=== PATIENT | male | born 1970 | race Caucasian/White ===

== ENCOUNTER 2023-07-02 13:22 | Inpatient (IN) | payer BC, SELFPAY ==
[2023-07-02] VITALS (11 sets, daily range): BP systolic 106–134; BP diastolic 69–99; BMI 36.7
--- NOTE | 2023-07-02 11:41 | W.PN.CARDCBS ---
Today's Communication / Plan
-
LHC
Impression / Plan
-
This is the H&P summary.
Full H&P scanned into chart.
PCP: HOSSEIN Buck (Not seen since 2018)
CDY: None, new to [facility]/Maurice Marshall MD
HPI: This is a 53 y/o white male, PMH sig for HTN, HLD, GERD, tobacco abuse. FH CAD in his father and grandparents. He has not seen PCP in 6 years and takes no prescription medications.
Presented to [facility] ER with new onset intermittent chest pain throughout the day. HS troponin peaked at 94. Started on Heparin gtt and loaded with aspirin 324mg. Transferred for [facility].
Echo 07/02/23- nml LVSF, EF 55-60%, no distinct WMA, trace MR
IMPRESSION:
NSTEMI
HTN
HLD
GERD
Tobacco abuse
FH CAD
PLAN:
NSTEMI-
C today
aspirin 81 given this morning after loaded in ER
started on metoprolol xl 25/d and diovan 40mg/d
echo results noted
cardiac rehab
followup with Dr. Marshall at d/c
HTN- monitor trends
HLD- TCh 276, Trig 262, LDL 199, HDL 42
started on high intensity statin therapy with atorvastatin 80/d
Elevated fasting glucose- was 143 this morning, check HgbA1C
Tobacco abuse- cessation strongly encouraged, nicoderm patch
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
Subjective
Date of Service: July 02, 2023
Physical Exam
Physical Exam
VS: 134/99- 76- 16- 99%RA
AAOx3, MAEE 5/5
RRR S1 S2 no murmurs
CTA bilat, non labored
soft abd, + bs
bilat extremities w/palpable distal pulses, no edema
[2023-07-02] MEDS: NSS 309 ML IV (13:40)
[2023-07-02 14:38] LABS: ACT-LR - POC 207 Seconds (116-155)
--- NOTE | 2023-07-02 15:20 | ITS.CL.ANGIO ---
Scanning Manager - Angioplasty
Angioplasty
Procedure Report:
LEFT HEART CATHETERIZATION
Date of Procedure: July 02, 2023
Procedures performed:
1: Coronary angiography
2: Left ventriculography
3: Percutaneous coronary intervention of the distal right coronary artery with placement of a 2.25 x 18 mm Xience stent postdilated proximally at high pressure with a 2.5 mm diameter noncompliant balloon
Primary Care Physician: None
Primary Student Union Consultant: Dr. Ronn Pascal
INDICATION: The patient is a 53-year-old man with no prior medical care who presents with unstable angina and ruled in for a very small non-ST elevation ME he is a smoker. His hemoglobin A1c is 6.4 this admission. Echocardiography showed normal LV
systolic function with a visually estimated ejection fraction of 55 to 60% with no significant valvular disease.
ACCESS: The patient was prepped and draped in usual sterile fashion. A 6 Macedonian sheath was placed in the right radial artery using the Seldinger over the wire technique.
HEMODYNAMIC FINDINGS (mmHg):
LV(s/d,EDP): 135/17, 24
Ao(s/d,m): 135/88, 107
ANGIOGRAPHIC FINDINGS:
Single-plane Left Ventriculography in MATIAS Projection: Normal LV systolic function with no clear regional wall motion abnormalities. No significant mitral regurgitation.
Coronary Angiography:
Dominance: Right
Left Main: Short, normal. Medium caliber.
Left Anterior Descending: The left anterior descending artery is a medium caliber vessel that gives rise to a medium caliber high diagonal branch. The LAD appears normal proximally. There is diffuse multilevel disease with 30 to 50% stenosis
throughout the midportion over a long segment starting just after the takeoff of the diagonal branch and first major septal employee services manager. The distal LAD is widely patent with normal distal flow. The major diagonal branch has diffuse proximal 50%
disease involving the takeoff of a small lateral vessel and a larger medial vessel. The medial vessel appears to be a reasonable surgical target. All vessels have normal flow.
Left Circumflex: The left circumflex is a relatively large nondominant system that gives rise to 3 major obtuse marginal branches. The first obtuse marginal branch is widely patent and courses in a ramus distribution with no focal disease. The
second obtuse marginal branch has a mid 70% stenosis with normal distal flow. The third obtuse marginal branch is a small vessel with limited vascular territory that appears to be widely patent.
Right Coronary: The right coronary artery is a large-caliber dominant vessel that gives rise to a large caliber posterior descending artery and small posterior left ventricular branch system. The mid right has a focal smooth 50% stenosis followed
by mild aneurysmal dilation. There is a larger aneurysmal dilation of the distal right coronary artery involving the takeoff of a medium caliber posterior descending artery that is widely patent. The PLV branch has a preocclusive 95% stenosis in
the AV groove jeopardizing flow and a 3 relatively small PLV branches.
Percutaneous Coronary Intervention (PCI): In light of the above angiographic findings and the patient's clinical presentation, I elected to proceed with a PCI of the culprit distal RCA lesion. I consulted with Dr. Milton Correa from CT surgery given
the diffuse nature of the LAD and major diagonal disease. Our feeling was the culprit lesion in the PLV territory was jeopardizing an area that could not be bypassed. My plan was to at least treat this lesion as it appeared to be the culprit and
then reevaluate multivessel stenting versus surgical revascularization for his left coronary disease. The patient was pretreated with unfractionated heparin and aspirin. A loading dose of clopidogrel 600 mg was given on the table at the end of the
procedure. A 6 Macedonian JR4 guiding catheter was used to engage the right coronary artery a short BMW wire was advanced down the right coronary artery and went into the posterior descending artery. I left this as an anchor for the guide which was
not well supported. A second BMW wire was then advanced down the PLV and into the largest distal branch. Predilation was performed with a 2.0 mm diameter balloon. Next a 2.25 x 18 mm Xience drug-eluting stent was deployed at 14 angelica. The more
proximal portion of the stent was postdilated with a 2.5 mm diameter noncompliant balloon at 16 angelica. Care was taken to stay within the stented margins.
FINAL RESULT: 0% in-stent residual stenosis with RITA-3 flow in all distal vessels.
Fluoroscopy Time (min): 10
Radiation Dose (mGy): 1873
DAP (Gy.cm2): 151
Closure device: None. A TR band was applied for hemostasis at the right wrist.
Complications: None.
ASSESSMENT:
1: Successful PCI of the culprit right coronary artery with placement of drug-eluting stent as described above.
2: Residual obstructive disease in the OM 2 as well as in the LAD as described above.
3: Preserved LV systolic function with no significant mitral gravitation elevated left ventricular filling pressures
CONCLUSIONS and RECOMMENDATIONS:
1: Routine post ME and post drug-eluting stent medical therapy and monitoring.
2: Formal CT surgical evaluation and plan a heart team discussion regarding revascularization of his residual left disease. The OM1 lesion is focal and would be a very favorable lesion for stenting. It may be that we consider a hybrid procedure
with arterial revascularization of his LAD and diagonal versus long overlapping stenting of the LAD with medical therapy for his diagonal.
Dave Phillips M.D.
[2023-07-02 15:51] LABS: ACT-LR - POC > 397 Seconds (116-155)
[2023-07-02 15:51] LABS: ACT-LR - POC > 397 Seconds (116-155)
[2023-07-02 15:51] LABS: ACT-LR - POC > 397 Seconds (116-155)
--- NOTE | 2023-07-02 15:51 | CONSULT.CT ---
Consultation
-
Date/Time Consultation Requested: 07/02/23 1545
Date/Time Consultation Performed: 07/02/23 1551
Requesting Provider: Afshan WOLF for Alan MACKENZIE
Performing Provider: Gigi WOLF for Sunny MACKENZIE
Reason for Consultation: CAD/CABG
Patient History
Physicians
Family Physician: None
Outpatient Nurse Practitioner Home Assessments: None
Inpatient Nurse Practitioner Home Assessments: Zeferino Phillips
History of Present Illness
53-year-old male with past medical history of hypertension, hyperlipidemia, GERD, tobacco abuse initially presented to [facility]'s emergency room with new onset of intermittent chest pain that worsened throughout the day. Troponins peaked
at 94 and was started on a heparin drip along with loaded with 324mg of aspirin. Patient was transferred to [facility] today for a left heart cath. Left heart cath revealed multivessel disease and he received a stent to the RCA, however,
there was disease in the LAD and OM so CT surgery was consulted for surgical evaluation.
Past Medical History
Past Medical History: GERD, HTN, Hypercholesterolemia, GA and Other
Concussion
Past Surgical History
Past Surgical History: None and PCI/Stent
Dental History
None
Family History
Family Medical History: CAD
Social History
Alcohol: Occasional
Drug: None
Tobacco: Smoker (1PPD)
Personal: Partner
Living: With Family
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
Allergies
Allergy/AdvReac Type Severity Reaction Status Date / Time
No Known Allergies Allergy Verified 07/02/23 13:22
Home Medications
Medication Instructions Recorded Confirmed Type
ibuprofen 200 mg tablet 600 mg PO Q6H PRN as needed for 07/02/23 07/02/23 History
pain
omeprazole 20 mg tablet,delayed 20 mg PO DAILY 07/02/23 07/02/23 History
release
Review of Systems
-
History Source: Patient
General: Reports Fatigue
HEENT: Reports No Symptoms
Respiratory: Reports Cough
Cardiac: Reports Chest Pain and CAD
Abdomen/GI: Reports Reflux and Indigestion
: Reports No Symptoms
Musculoskeletal: Reports No Symptoms
Skin: Reports No Symptoms
Neurological: Reports No Symptoms
Vascular: Reports No Symptoms
Physical Exam
Vital Signs
Temp 98.0 F 07/02/23 13:31
Temp route: Oral 07/02/23 13:31
Pulse 79 07/02/23 13:31
Resp Rate 18 07/02/23 13:31
Blood pressure 134/99 07/02/23 13:31
Blood pressure extremity used: Left upper arm 07/02/23 13:31
Position: Sitting 07/02/23 13:31
SaO2 96 07/02/23 13:31
Oxygen Mode of Delivery Room air 07/02/23 13:31
Can the patient verbally communicate their pain? Yes 07/02/23 13:31
Actual Weight 103 kg 07/02/23 13:30
Body Mass Index (BMI) 36.7 07/02/23 13:30
Exam
General: Well Developed
HEENT: Normocephalic
Respiratory: Clear
Cardiac: S1/S2
GI: Soft, Non Tender and Other (obese)
Rectal: Deferred by Provider
Skin: Warm
Neuro: AO x 3
Lymph: No Lymphadenopathy
Psych: Calm
Assessment / Plan
-
53-year-old male with past medical history listed above presented to [facility] with chest pain ruled in for non-STEMI. He was transferred here today for a left heart cath. During the left heart cath he received a stent to the RCA but CT
surgery was consulted for LAD and OM bypass.
#CAD s/p QUE to RCA on 07/02
- Patient's case will be discussed with attending physician. Further details regarding surgical timing intervention will be determined after attending physicians full evaluation.
- Routine preoperative cardiothoracic surgery orders will be initiated.
- STS risk stratification score will be calculated after preoperative testing is complete
- GDMT per cardiology; will need to be off plavix x5 days
- Educated about smoking cessation
--- NOTE | 2023-07-02 16:44 | CM ---
Chart reviewed. Patient is independent of ADLS, lives with his significant other and children in a 2 STH, 4 YESICA,0 DME. Pt currently with no discharge needs. Plan is for the patient to return home. CM to follow
[2023-07-02] MEDS: TYLENOL 650 MG PO (17:28)
[2023-07-02] MEDS: LIPITOR 80 MG PO (17:29)
--- NOTE | 2023-07-02 17:40 | PTCARENOTE ---
Received patient from earth science laboratory technician at 1530 after cardiac cath via R radial artery. Radial band in place, strong radial pulse, hand cool but pulse ox 96% on RA. monitoring VS, patient is pain free. Family at the bedside, seen by CT surgery. Assisted oob
now to the bathroom and sitting oob in the chair. Medicated with tylenol PO for a headache and waiting for dinner.
--- NOTE | 2023-07-02 23:03 | PTCARENOTE ---
Received patient at change of shift this PM. AAOx3. VSS. He is NSR on the monitor. HR in the 60s-70s. INT patent. Right radial site appears clean, dry, and intact. No bleeding. No hematoma. Plan of care discussed. He is receptive to teaching and
motivated. We discussed his medications. He had questions about his BP medications. All questions were answered at this time. He denies pain and appears comfortable in bed. Will continue to monitor.
[2023-07-03 04:47] VITALS: BP 112/69
[2023-07-03 06:17] LABS: Hematocrit 46.4 % (39.0-52.0); Hemoglobin 15.9 g/dL (13.0-18.0); Mean Corp Hgb Conc. 34.3 g/dL (33.0-37.0); Mean Corpuscular Hgb 30.1 pg (27.0-31.0); Mean Corpuscular Volume 87.7 fL (80.0-94.0); Mean Platelet Volume 9.8 fL (7.4-10.4); Platelet Count 252 10^3/uL (130-400); Red Blood Cell Count 5.29 10^6/uL (4.70-6.10); Red Cell Dist. Width 12.6 % (11.5-14.5); White Blood Cell Count 8.8 10^3/uL (4.8-10.8)
[2023-07-03 06:25] LABS: INR 0.98; PT 13.2 Sec (11.4-14.6)
[2023-07-03 06:26] LABS: APTT 30.9 Sec (23.4-35.0)
[2023-07-03 06:59] LABS: ALT (SGPT) 35 U/L (0-50); AST (SGOT) 27 U/L (17-59); Albumin 3.9 g/dl (3.5-5.0); Alkaline Phosphatase 67 U/L (38-126); Blood Urea Nitrogen 14 mg/dl (9-20); Calcium 9.1 mg/dl (8.4-10.2); Carbon Dioxide 21 mmol/L (22-30); Chloride 104 mmol/L (98-107); Direct Bilirubin 0.4 mg/dl (0.0-0.4); Estimated Creatinine Clearance > 125 ml/min; Glucose 119 mg/dl (70-99); HDL Cholesterol 36 mg/dl; LDL Cholesterol, Calculated 144 mg/dl; Potassium 4.1 mmol/L (3.5-5.1); Sodium 136 mmol/L (135-145); Total Bilirubin 0.8 mg/dl (0.2-1.3); Total Cholesterol 240 mg/dl (50-199); Total Protein 6.4 g/dl (6.3-8.2); Triglyceride 304 mg/dl (10-149); Very Low Density Lipoprotein 60 mg/dl (0-30); eGFR > 60.00
--- NOTE | 2023-07-03 07:37 | W.PN.CARDCBS ---
Addendum entered and electronically signed by Angelica Chung MD 07/03/23 13:17:
I saw and examined the patient.
The Music Rehabilitation Therapist's note was reviewed and I agree with the note.
Comment: Overall patient is doing well and denies any chest discomfort or shortness of breath. No issues at the right radial access site.
Vital signs are stable. No significant events on telemetry. Exam is notable for a gentleman in no acute distress, awake, alert and oriented x 3, obese, lungs are clear to auscultation bilaterally, no evidence of jugular venous distention, regular
rate, normal S1 and S2, no murmurs, rubs or gallops, warm extremities without significant edema. Right radial site with dressing in place which is clean, dry and intact without evidence of hematoma or bruit
Echocardiogram by report at [facility] showing normal biventricular function without significant heart valve disease. Mild basal inferior hypokinesis noted on some views.
Plan:
1. For his presenting NSTEMI status post RPL PCI on July 02, 2023 with a 2.25 x 18 mm Xience caroline point drug-eluting stent, continue dual antiplatelet therapy with daily baby aspirin and Plavix along with high intensity statin and beta-kaci as
tolerated.
2. Plan for n.p.o. after midnight and PCI of OM and IFR of LAD tomorrow by Dr. Zeferino Phillips.
3. Optimize cardiovascular risk factors.
4. Eventual referral for outpatient cardiac rehab.
Angelica Chung MD, [facility], [facility]
Original Note:
Today's Communication / Plan
-
Doing well following NSTEMI w/ RCA QUE
Continue DAPT, Toprol, Valsartan and Atorvastatin
HgA1c pending
Carotid duplex pending
Cardiac rehab
Will arrange for outpt cardiology follow up w/ [facility]
Impression / Plan
-
PCP: HOSSEIN Buck (Not seen since 2018)
CDY: None, new to [facility]/Maurice Marshall MD
Impression:
Presented 07/01/2023 to [facility] w/ chest pain
NSTEMI, trop peaked 94 @ [facility]
CAD
s/p distal RCA�2.25 x 18 mm Xience stent (07/02/2023)
HTN
HLD
GERD
Tobacco abuse
FH CAD
Echo 07/02/23 ([facility])- nml LVSF, EF 55-60%, no distinct WMA, trace MR
PLAN:
CAD w/ NSTEMI. S/p distal RCA�2.25 x 18 mm Xience stent (07/02/2023)
-Now chest pain free with ambulating around the unit
-Has residual diffuse LAD and OM2 70% mid disease. Evaluated by CTS. Tentative plan is for DAPT x 1 month with possible staged PCI of OM and then return for eventual CABG x 1 ORTIZ-LAD pending patients clinical course and symptoms
-New to Metoprolol xl 25/d and diovan 40mg/d this admission. BP is stable
-Echo as noted above w/ preserved EF
-cardiac rehab consult
HLD- TC 276, Trig 262, LDL 199, HDL 42; repeat TC 240, HDL 36, LDL 144, tgs 304
-started on high intensity statin therapy with atorvastatin 80/d; Goal LDL <70
Elevated fasting glucose and triglycerides- HgbA1C pending
Tobacco abuse- cessation strongly encouraged, nicoderm patch
Discussed w/ nursing, CTS, patient, patients and cardiology
HPI 07/02/2023:
This is a 53 y/o white male, PMH sig for HTN, HLD, GERD, tobacco abuse. FH CAD in his father and grandparents. He has not seen PCP in 6 years and takes no prescription medications.
Presented to [facility] ER with new onset intermittent chest pain throughout the day. HS troponin peaked at 94. Started on Heparin gtt and loaded with aspirin 324mg. Transferred for [facility].
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
Subjective
Date of Service: July 03, 2023
Patient seen and examined. Reports that he is feeling well and has been able to ambulate around the unit without further chest pain/burning.
Objective
Labs:
07/03/23 05:09
07/03/23 05:09
Labs
Hgb 15.9 g/dL (13.0-18.0) 07/03/23 05:09
Hct 46.4 % (39.0-52.0) 07/03/23 05:09
Plt Count 252 10^3/uL (130-400) 07/03/23 05:09
PT 13.2 Sec (11.4-14.6) 07/03/23 05:09
INR 0.98 07/03/23 05:09
APTT 30.9 Sec (23.4-35.0) 07/03/23 05:09
Sodium 136 mmol/L (135-145) 07/03/23 05:09
Potassium 4.1 mmol/L (3.5-5.1) 07/03/23 05:09
BUN 14 mg/dl (9-20) 07/03/23 05:09
Creatinine 0.7 mg/dL (0.7-1.3) 07/03/23 05:09
Glucose 119 mg/dl (70-99) H 07/03/23 05:09
Vital Signs and I&O:
Vital Signs
Temp Pulse Resp BP Pulse Ox
98.1 F 56 18 112 96
07/03/23 04:46 07/03/23 05:00 07/03/23 04:46 07/03/23 04:47 07/03/23 04:46
Vital Signs
Temp Pulse Resp BP Pulse Ox
98.1 F 56 18 112/69 96
07/03/23 04:46 07/03/23 05:00 07/03/23 04:46 07/03/23 04:47 07/03/23 04:46
Intake & Output
0107/02/23 07/03/23 07/04/23
06:59 06:59 06:59 06:59
Intake Total 2359
Balance 2359
Physical Exam
Physical Exam
GEN: No distress, awake, Ox3
HEENT: supple, anicteric, mmm
LUNGS: CTA, no wheezes/rales
CV: Reg, S1/S2, no murmur, rubs or gallops
ABD: soft, BS+, NT/ND
EXT: No edema, clubbing or cyanosis; Right radial access site C/D/I with + radial/ulnar pulses
NEURO: Gross non-focal
SKIN: No rash, warm, dry, pink
[2023-07-03 08:07] VITALS: BP 125/100
--- NOTE | 2023-07-03 08:24 | PTCARENOTE ---
Received patient this morning sitting oob in the chair. Denies any chest pain or discomfort. Dressing at right radial site is dry and intact without any sign of hematoma. Discussed plan of care for today, patient is hopeful to go home later after
testing completed and heart team has plan in place.
[2023-07-03] MEDS: DIOVAN 40 MG PO (08:47)
[2023-07-03] MEDS: PLAVIX 75 MG PO (08:47)
[2023-07-03] MEDS: LOW STRENGTH ASPIRIN 81 MG PO (08:47)
[2023-07-03] MEDS: PROTONIX 40 MG PO (08:47)
[2023-07-03] MEDS: TOPROL XL 25 MG PO (08:48)
[2023-07-03] MEDS: FLUSH (NSS) 1 FLUSH IV ×2 (08:48→19:47)
[2023-07-03 10:20] LABS: Glycohemoglobin (HgbA1c) 6.7 % (4.0-5.6)
--- NOTE | 2023-07-03 10:26 | CM ---
Chart reviewed. Patient is independent of ADLS, lives with his significant other and children in a 2 STH, 4 [place], 0 DME. Patient currently with no discharge needs. CM to follow
--- NOTE | 2023-07-03 10:28 | CM ---
Chart reviewed. Transfer to [facility] was placed on hold by hospitalist, patient lethargic today. [facility] authorization was approved case # [id number], 07/03-07/06 NRD 07/06, Nilam [phone]. CM to follow up when patient is medically stable for
discharge. Plan is for the patient to go to Skilled Rehab, preferably [facility]. CM to follow
[2023-07-03 13:31] VITALS: BP 123/73
[2023-07-03 17:05] VITALS: BP 123/91
--- NOTE | 2023-07-03 17:45 | W.PN.UPDATE ---
Update Note
Progress Note Update
Spoke with CT surgeon Dr. Corrae and the patient and his at length.
Will proceed with PCI of OM and then iFR guided LAD PCI.
[2023-07-03] MEDS: LIPITOR 80 MG PO (18:57)
[2023-07-03 19:36] VITALS: BP 113/90
[2023-07-03] MEDS: TYLENOL 650 MG PO (19:47)
[2023-07-03 22:42] VITALS: BP 100/62
[2023-07-04] VITALS (16 sets, daily range): BP systolic 111–171; BP diastolic 75–103
--- NOTE | 2023-07-04 01:12 | PTCARENOTE ---
Received patient at change of shift this PM. AAOx3. VSS. He is NSR on the monitor. HR in the 70s. INT patent. Right radial site is clean, dry, and intact. He denies chest pain or discomfort. Plan of care discussed with patient and family at the
bedside. He is receptive to teaching and motivated. They had some questions that were answered by this RN at this time. He understands that he is to remain NPO after midnight to go to the canvas shop laborer in the morning. He was given Tylenol for a mild
headache. See MAR. He appears comfortable in bed at this time. Will continue to monitor.
[2023-07-04] MEDS: LOW STRENGTH ASPIRIN 81 MG PO (09:07)
[2023-07-04] MEDS: PLAVIX 75 MG PO (09:07)
[2023-07-04] MEDS: PROTONIX 40 MG PO (09:08)
[2023-07-04] MEDS: DIOVAN 40 MG PO (09:08)
[2023-07-04] MEDS: TOPROL XL 25 MG PO (09:09)
--- NOTE | 2023-07-04 10:36 | CM ---
Chart reviewed. Patient is independent of ADLS, lives with his significant other and children in a 2 STH, 4 YESICA, 0 DME. Patient is currently with no discharge needs. Plan is for the patient to return home. CM to follow
--- NOTE | 2023-07-04 10:43 | PTCARENOTE ---
Pt NPO except meds, awaiting card cath.
--- NOTE | 2023-07-04 13:51 | ITS.CL.ANGIO ---
It Program Engagement Director - Angioplasty
Angioplasty
Procedure Report:
LEFT HEART CATHETERIZATION
Date of Procedure: 07/04/2023
Procedures performed:
1: Percutaneous coronary intervention of the left circumflex first obtuse marginal branch with placement of 2 overlapping drug-eluting stents (2.75 x 15 mm Xience and a 2.75 x 8 mm Xience) postdilated at high pressure with a 3.0 mm diameter
noncompliant balloon
2: Physiologic lesion assessment of the left anterior descending artery
3: Percutaneous coronary mention of the mid left anterior descending artery with placement of 2 overlapping drug-eluting stents (3.0 x 38 mm Xience distally overlapping with a 3.25 x 23 mm Xience proximally) with high-pressure post dilation at 16
angelica with a 3.0 mm diameter balloon distally and a 3.5 mm balloon proximally
INDICATION: The patient is a 53-year-old man who presented with a non-ST elevation KS and underwent culprit stenting of his distal right coronary artery with placement of a drug-eluting stent on Sunday. CT surgical evaluation was obtained given his
diffuse multivessel coronary disease and after a heart team discussion we offered him multivessel PCI versus CABG. We have elected to proceed with stenting of the focal OM 1 disease with IFR guided possible stenting of the LAD.
ACCESS: The patient was prepped and draped in usual sterile fashion. A 6 Beninese sheath was placed in the right radial artery using the Seldinger over the wire technique.
HEMODYNAMIC FINDINGS (mmHg):
LV(s/d,EDP): Valve not crossed
Ao(s/d,m): 110/76, 92
ANGIOGRAPHIC FINDINGS:
Coronary Angiography:
Please refer to full diagnostic study performed on 07/02/2023 at [facility].
Percutaneous Coronary Intervention (PCI): The patient was pretreated with aspirin and Plavix. Unfractionated heparin was given. A 6 Beninese XB 3.5 guiding catheter was used to engage the left main. Hi-Torque floppy wire was easily advanced down
the circumflex and across the proximal OM1 lesion. Primary stenting was performed with a 2.75 x 15 mm Xience drug-eluting stent. Follow-up angiography showed disease proximal to the stent that was uncovered. I elected to place a second 2.75 x 8
mm Xience drug-eluting stent in overlapping fashion to cover the diseased segment. The entire stented segment was postdilated with a 3.0 mm diameter noncompliant balloon at 16 angelica. This was done in a distal to proximal fashion taking care to stay
within the stented margins.
FINAL RESULT: 0% in-stent residual stenosis with excellent angiographic result and RITA-3 flow in all vessels.
Physiologic lesion assessment of the left anterior descending artery: I then turned my attention to the left anterior descending artery disease. A Omni pressure wire was advanced with the transducer positioned in the more normal-appearing distal
LAD. The IFR was serially measured as low as 0.90, 0.89, 0.88, and 0.86. In light of this physiologic data I elected to proceed with PCI.
Percutaneous coronary intervention of the LAD: The pressure wire was used as my working wire. Predilation was performed with a 2.5 x 30 mm balloon. Next a 3.0 x 38 mm Xience drug-eluting stent was deployed distally. The stent was postdilated with
a 3.0 mm diameter noncompliant balloon at 16 angelica distally. A second 3.25 x 23 mm Xience drug-eluting stent was deployed more proximally in overlapping fashion with the distal stent. A 3.5 mm diameter noncompliant balloon was used to post dilate
the overlap section at 6 angelica. The proximal stent was postdilated at 16 angelica with care taken to stay within the stented margins.
FINAL RESULT: 0% in-stent residual stenosis with excellent angiographic result and RITA-3 flow in all vessels.
Fluoroscopy Time (min): 11.7
Radiation Dose (mGy): 88
DAP (Gy.cm2): 37
Closure device: None. A TR band was applied for hemostasis at the right wrist.
Complications: None.
ASSESSMENT:
1: Successful PCI of the circumflex and physiologic guided PCI of the LAD with placement of drug-eluting stents as described above.
CONCLUSIONS and RECOMMENDATIONS:
1: Routine post drug-eluting stent and post recent non-STEMI medical therapy and monitoring.
2: Smoking cessation is the most critical intervention to reduce his future morbidity mortality from vascular events.
3: Dual antiplatelet therapy with aspirin 81 mg and clopidogrel 75 mg daily for a year and then aspirin 81mg daily indefinitely.
Dave Phillips M.D.
[2023-07-04 14:24] LABS: ACT-LR - POC 371 Seconds (116-155)
[2023-07-04] MEDS: MAALOX 30 ML PO (15:36)
[2023-07-04] MEDS: TYLENOL 650 MG PO ×2 (15:38→23:04)
[2023-07-04] MEDS: NSS 1000 IV (15:43)
--- NOTE | 2023-07-04 16:23 | PTCARENOTE ---
Pt c/o 08/11 chest discomfort post card cath, not sure if he is also feeling some indigestion. EKG obtained as ordered. Dr Phillips aware. Order obtained for Maalox. Pt med with Maalox and tylenol 650 mg po. R radial site clean and dry.
[2023-07-04] MEDS: MORPHINE SULFATE 2 MG IV (17:05)
--- NOTE | 2023-07-04 17:43 | PTCARENOTE ---
Pt continues to c/o chest discomfort rad down L arm,rated 4-5/10, especially with deep inspiration. Alie Cavanaugh notified, morphine 2 mg IV ordered and given with some relief noted. Pt ate dinner. R radial site with R band remains intact and dry.
[2023-07-04] MEDS: LIPITOR 80 MG PO (17:51)
--- NOTE | 2023-07-04 22:39 | PTCARENOTE ---
R radial band removed @ change of shift. dressing CDI. + radial pulse. pt ambulating the room as a self without issue. mild 2/10 CP complaints- not requesting any pain medication at this time. He states that it is no longer radiating down his left
arm. 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 SB/ SR on the monitor 50s- 60s. POC discussed- pt verbalized understanding.
--- NOTE | 2023-07-04 23:24 | PTCARENOTE ---
Pt rang stating that he is having 3/10 CP that is keeping him from sleeping. 2L NC- applied pt requesting Tylenol- given per aug.
[2023-07-05 04:36] VITALS: BP 137/85
[2023-07-05] MEDS: TYLENOL 650 MG PO (04:40)
[2023-07-05] MEDS: MAALOX 30 ML PO (04:43)
[2023-07-05 05:12] LABS: Hematocrit 47.1 % (39.0-52.0); Hemoglobin 16.3 g/dL (13.0-18.0); Mean Corp Hgb Conc. 34.6 g/dL (33.0-37.0); Mean Corpuscular Hgb 30.9 pg (27.0-31.0); Mean Corpuscular Volume 89.2 fL (80.0-94.0); Mean Platelet Volume 9.7 fL (7.4-10.4); Platelet Count 264 10^3/uL (130-400); Red Blood Cell Count 5.28 10^6/uL (4.70-6.10); Red Cell Dist. Width 12.1 % (11.5-14.5); White Blood Cell Count 12.1 10^3/uL (4.8-10.8)
--- NOTE | 2023-07-05 05:18 | PTCARENOTE ---
Pt rang again this morning- noting 2/10 cp he reports that he was able to sleep after his first PRN Tylenol. Asking for PRN Tylenol again- RN educated this pt on ringing to make me aware of any changes in CP
[2023-07-05 05:31] LABS: Blood Urea Nitrogen 12 mg/dl (9-20); Calcium 9.4 mg/dl (8.4-10.2); Carbon Dioxide 21 mmol/L (22-30); Chloride 104 mmol/L (98-107); Estimated Creatinine Clearance > 125 ml/min; Glucose 126 mg/dl (70-99); Potassium 4.1 mmol/L (3.5-5.1); Sodium 138 mmol/L (135-145); eGFR > 60.00
[2023-07-05 07:05] VITALS: BP 145/98
[2023-07-05] MEDS: LOW STRENGTH ASPIRIN 81 MG PO (08:19)
[2023-07-05] MEDS: PLAVIX 75 MG PO (08:19)
[2023-07-05] MEDS: PROTONIX 40 MG PO (08:19)
[2023-07-05] MEDS: DIOVAN 40 MG PO (08:20)
[2023-07-05] MEDS: TOPROL XL 25 MG PO (08:21)
--- NOTE | 2023-07-05 08:50 | W.PN.CARDCBS ---
Today's Communication / Plan
-
post MV PCI
DAPT
oob ambulate hallways if cp resolved poss d/c home later today vs tomorrow
Needs PCP to follow up with re: Diabetes
Impression / Plan
-
PCP: HOSSEIN Buck (Not seen since 2018)
CDY: None, new to [facility]/Maurice Marshall MD
Impression:
Presented 07/01/2023 to [facility] w/ chest pain
NSTEMI, trop peaked 94 @ [facility]
CAD
s/p distal RCA�2.25 x 18 mm Xience stent (07/02/2023)
s/p PCI OM1 x 2 QUE and LAD x2 QUE (07/04/23)
HTN
HLD
GERD
Tobacco abuse
FH CAD
Echo 07/02/23 ([facility])- nml LVSF, EF 55-60%, no distinct WMA, trace MR
07/04/23 [facility]:
1: Percutaneous coronary intervention of the left circumflex first obtuse marginal branch with placement of 2 overlapping drug-eluting stents (2.75 x 15 mm Xience and a 2.75 x 8 mm Xience) postdilated at high pressure with a 3.0 mm diameter
noncompliant balloon
2: Physiologic lesion assessment of the left anterior descending artery
3: Percutaneous coronary mention of the mid left anterior descending artery with placement of 2 overlapping drug-eluting stents (3.0 x 38 mm Xience distally overlapping with a 3.25 x 23 mm Xience proximally) with high-pressure post dilation at 16
angelica with a 3.0 mm diameter balloon distally and a 3.5 mm balloon proximally
PLAN:
post PCI LADx2, OMx2 07/04/23
having dull chest pain 2/10, not worse with ambulation ? musculoskeletal vs stretch pain vs pericarditis
oob ambulate hallway
tele no ectopy, SR/SB
Rad site stable
DAPT ASA/Plavix
continue Metoprolol xl 25/d and Diovan 40mg/d this admission. BP is stable
LDL 144, TG 304 continue atorvastatin 80mg, check lipids/LFT's in 6-8 weeks
Echo as noted above w/ preserved EF
cardiac rehab consult
HLD- TC 276, Trig 262, LDL 199, HDL 42; repeat TC 240, HDL 36, LDL 144, tgs 304
-started on high intensity statin therapy with atorvastatin 80/d; Goal LDL <70
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 He should follow up
with a PCP and let them refer to endocrine.
Tobacco abuse- cessation strongly encouraged, nicoderm patch
If pain resolved, poss d/c home later today or tomorrow
HPI 07/02/2023:
This is a 53 y/o white male, PMH sig for HTN, HLD, GERD, tobacco abuse. FH CAD in his father and grandparents. He has not seen PCP in 6 years and takes no prescription medications.
Presented to [facility] ER with new onset intermittent chest pain throughout the day. HS troponin peaked at 94. Started on Heparin gtt and loaded with aspirin 324mg. Transferred for [facility].
Progress Note - Chlorine Cell Tender
Subjective
Date of Service: July 05, 2023
2/10 chest discomfort, no sob
Objective
Labs:
07/05/23 04:44
07/05/23 04:44
Labs
Hgb 16.3 g/dL (13.0-18.0) 07/05/23 04:44
Hct 47.1 % (39.0-52.0) 07/05/23 04:44
Plt Count 264 10^3/uL (130-400) 07/05/23 04:44
PT 13.2 Sec (11.4-14.6) 07/03/23 05:09
INR 0.98 07/03/23 05:09
APTT 30.9 Sec (23.4-35.0) 07/03/23 05:09
Sodium 138 mmol/L (135-145) 07/05/23 04:44
Potassium 4.1 mmol/L (3.5-5.1) 07/05/23 04:44
BUN 12 mg/dl (9-20) 07/05/23 04:44
Creatinine 0.7 mg/dL (0.7-1.3) 07/05/23 04:44
Glucose 126 mg/dl (70-99) H 07/05/23 04:44
Vital Signs and I&O:
Vital Signs
Temp Pulse Resp BP Pulse Ox
98.5 F 61 20 137/85 95
07/05/23 07:10 07/05/23 04:36 07/05/23 07:10 07/05/23 04:36 07/05/23 07:10
Vital Signs
Temp Pulse Resp BP Pulse Ox
98.5 F 61 20 137/85 95
07/05/23 07:10 07/05/23 04:36 07/05/23 07:10 07/05/23 04:36 07/05/23 07:10
Intake & Output
07/03/23 07/04/23 07/05/23 07/06/23
06:59 06:59 06:59 06:59
Intake Total 2360 / 2360 1440 / 1440 755 / 755
Balance 2360 / 2360 1440 / 1440 755 / 755
Physical Exam
Physical Exam
NAD<AOX3
S1, S2, RRR
CTAB< non labored, no wheeze
SNTND bsx4
R rad site c/d/i no HT, good pulse
--- NOTE | 2023-07-05 10:46 | CM ---
Chart reviewed. Patient is independent of ADLS, lives with his children and girlfriend in a [address], [address], [address]. Patient currently with no discharge needs. CM to follow
[2023-07-05 11:29] VITALS: BP 139/95
--- NOTE | 2023-07-05 14:26 | W.PN.CARDCBS ---
Today's Communication / Plan
-
Stable for discharge from cardiology perspective
Plan for outpatient follow-up with [facility]
Impression / Plan
-
PCP: Willie Vanegas
CDY: None, new to [facility]/Maurice Marshall MD
Impression:
Presented 07/01/2023 to [facility] w/ chest pain
NSTEMI, trop peaked 94 @ [facility]
CAD
s/p distal RCA�2.25 x 18 mm Xience stent (07/02/2023)
s/p PCI OM1 x 2 QUE and LAD x2 QUE (07/04/23)
HTN
HLD
GERD
Tobacco abuse
FH CAD
Echo 07/02/23 ([facility])- nml LVSF, EF 55-60%, no distinct WMA, trace MR
07/04/23 [facility]:
1: Percutaneous coronary intervention of the left circumflex first obtuse marginal branch with placement of 2 overlapping drug-eluting stents (2.75 x 15 mm Xience and a 2.75 x 8 mm Xience) postdilated at high pressure with a 3.0 mm diameter
noncompliant balloon
2: Physiologic lesion assessment of the left anterior descending artery
3: Percutaneous coronary mention of the mid left anterior descending artery with placement of 2 overlapping drug-eluting stents (3.0 x 38 mm Xience distally overlapping with a 3.25 x 23 mm Xience proximally) with high-pressure post dilation at 16
angelica with a 3.0 mm diameter balloon distally and a 3.5 mm balloon proximally
PLAN:
PCI LADx2, OMx2 07/04/23
overall fells well, does report very mild non-exertional chest discomfort which is resolving, seems to be atypical by his description
tele is unremarkable
no evidence of mechanical complication or decompensated HF on exam
R radial cath site neurovascularly intact
DAPT ASA/Plavix
continue Metoprolol xl 25/d and Diovan 40mg/d this admission
Echo as noted above w/ preserved EF
cardiac rehab consult
Stable for discharge
Cardiology follow up through [facility]
HPI 07/02/2023:
This is a 53 y/o white male, PMH sig for HTN, HLD, GERD, tobacco abuse. FH CAD in his father and grandparents. He has not seen PCP in 6 years and takes no prescription medications.
Presented to [facility] ER with new onset intermittent chest pain throughout the day. HS troponin peaked at 94. Started on Heparin gtt and loaded with aspirin 324mg. Transferred for [facility].
Progress Note - Patient Access Coordinator
Subjective
Date of Service: July 05, 2023
No acute overnight events. Patient is resting comfortably out of bed to chair. Tells me his breathing is comfortable. Did have some right shoulder discomfort which has resolved. Also reporting very mild substernal chest pain which is resolving,
seems to be constant and is not exertional in nature.
Objective
Labs:
07/05/23 04:44
07/05/23 04:44
Labs
Hgb 16.3 g/dL (13.0-18.0) 07/05/23 04:44
Hct 47.1 % (39.0-52.0) 07/05/23 04:44
Plt Count 264 10^3/uL (130-400) 07/05/23 04:44
PT 13.2 Sec (11.4-14.6) 07/03/23 05:09
INR 0.98 07/03/23 05:09
APTT 30.9 Sec (23.4-35.0) 07/03/23 05:09
Sodium 138 mmol/L (135-145) 07/05/23 04:44
Potassium 4.1 mmol/L (3.5-5.1) 07/05/23 04:44
BUN 12 mg/dl (9-20) 07/05/23 04:44
Creatinine 0.7 mg/dL (0.7-1.3) 07/05/23 04:44
Glucose 126 mg/dl (70-99) H 07/05/23 04:44
Vital Signs and I&O:
Vital Signs
Temp Pulse Resp BP Pulse Ox
98.6 F 73 20 145/98 96
07/05/23 11:26 07/05/23 09:00 07/05/23 11:26 07/05/23 07:05 07/05/23 11:26
Vital Signs
Temp Pulse Resp BP Pulse Ox
98.6 F 73 20 145/98 96
07/05/23 11:26 07/05/23 09:00 07/05/23 11:26 07/05/23 07:05 07/05/23 11:26
Intake & Output
07/03/23 07/04/23 07/05/23 07/06/23
06:59 06:59 06:59 06:59
Intake Total 2360 / 2360 1440 / 1440 755 / 755
Balance 2360 / 2360 1440 / 1440 755 / 755
Physical Exam
Physical Exam
Gen: NAD, AAOx3
HEENT: NC/AT, sclera anicteric
Neck: No JVD
CV: RRR, NL s1/s2, no M/R/G
Lungs: CTAB
Abd: S/ND
Ext: No LE edema
Skin: Warm, dry
Neuro: Non-focal
[2023-07-05 15:44] LABS: ACT-LR - POC > 397 Seconds (116-155)
[2023-07-05 15:44] LABS: ACT-LR - POC > 397 Seconds (116-155)
--- NOTE | 2023-07-05 16:07 | PTCARENOTE ---
Pt ambulated in halls today, antonino well, no c/o chest pain.
--- NOTE | 2023-07-18 10:44 | W.DS.TRANS ---
DC Summary - Press Feeder
-
Discharge Instructions:
Discharge Diagnosis/Procedures NSTEMI, s/p angioplasty and stent x1 to Right
Coronary artery (07/02), x2 to Obtuse Marginal
and x2 to Left Anterior Descending arteries (
)
Diet Low Cholesterol
Driving Restrictions No driving for 24 hours
Other Services Cardiac Rehab
Stop these medications: STOP omeprazole- will interact with plavix. You
will take protonix instead
Instructions:
Stand-Alone Forms: DC Instructions- Cath/EP Lab
Changes to Home Medications: Yes
Discharge Medications:
DC Medications w/original date entered in [facility]
ibuprofen 200 mg tablet 600 mg PO Q6H PRN as needed for pain 07/02/23
aspirin 81 mg chewable tablet (Children's Aspirin) 81 mg PO DAILY #1 tab 07/05/23
atorvastatin 80 mg tablet 80 mg PO QPM #90 tabs 07/05/23
clopidogrel 75 mg tablet 75 mg PO DAILY #90 tabs 07/05/23
metoprolol succinate 25 mg tablet,extended release 24 hr 25 mg PO DAILY #90 tabs 07/05/23
pantoprazole 40 mg tablet,delayed release 40 mg PO DAILY #90 tabs 07/05/23
valsartan 40 mg tablet 40 mg PO DAILY #90 tabs 07/05/23
Home Medication Changes
all meds new
Pending Results: No
== END 2023-07-05 16:17 | disposition home or self-care (01) | DRG 321 ==
LOC: IVU 13:22
PROVIDERS: Clinical Nurse Specialist Acute Care; Nurse Practitioner; ADMITTING PHYSICIAN Internal Medicine Interventional Cardiology; CONSULT PHYSICIAN Thoracic Surgery (Cardiothoracic Vascular Surgery)
PROC: B2151ZZ Fluoroscopy of Left Heart using Low Osmolar Contrast (ICD-10-PCS; 2023-07-02)
PROC: 027034Z Dilation of Coronary Artery, One Artery with Drug-eluting Intraluminal Device, Percutaneous Approach (ICD-10-PCS; 2023-07-02)
PROC: B2111ZZ Fluoroscopy of Multiple Coronary Arteries using Low Osmolar Contrast (ICD-10-PCS; 2023-07-02)
PROC: 4A023N7 Measurement of Cardiac Sampling and Pressure, Left Heart, Percutaneous Approach (ICD-10-PCS; 2023-07-02)
PROC: 027137Z Dilation of Coronary Artery, Two Arteries with Four or More Drug-eluting Intraluminal Devices, Percutaneous Approach (ICD-10-PCS; 2023-07-04)
PROC: 4A033BC Measurement of Arterial Pressure, Coronary, Percutaneous Approach (ICD-10-PCS; 2023-07-04)
DX: I21.4 Non-ST elevation (NSTEMI) myocardial infarction (principal); I10 Essential (primary) hypertension; K21.9 Gastro-esophageal reflux disease without esophagitis; E78.00 Pure hypercholesterolemia, unspecified; I25.110 Atherosclerotic heart disease of native coronary artery with unstable angina pectoris; F17.210 Nicotine dependence, cigarettes, uncomplicated; R73.01 Impaired fasting glucose; Z82.49 Family history of ischemic heart disease and other diseases of the circulatory system; I25.2 Old myocardial infarction
CPT/HCPCS: 71046; 80048; 80053; 80061; 82248; 83036; 85027; 85347; 85610; 85730; 93005; 93458; 93571; 93880; 94010; 99406; C1725; C1769; C1874; C1887; C1894; C9600; J0153; Q9967